=== PATIENT | male | born 1970 | race Caucasian/White ===

== ENCOUNTER 2022-03-16 23:28 | Emergency (ER) | payer OTHER ==
[2022-03-17] MEDS ORDERED: Acetaminophen/HYDROcodone 325-5 MG Tab PO ONE (00:23)
[2022-03-17] MEDS ORDERED: Ketorolac 30 MG/ML SDV IVPUSH ONE (01:46)
[2022-03-17 02:31] LABS: CARBON DIOXIDE,CO2 29.2 mmol/L (21.0-32.0); POTASSIUM,K 4.2 mmol/L (3.5-5.1)
[2022-03-17] MEDS ORDERED: Iopamidol 755 MG/ML 500 ML Multipack Bottle IVPUSH STA (03:09)
[2022-03-17] MEDS ORDERED: Morphine 4 MG/ML VIAL ONE (06:50)
[2022-03-17] MEDS ORDERED: Morphine 4 MG/ML VIAL IM ONE (07:03)
[2022-03-17] MEDS ORDERED: Morphine 4 MG/ML VIAL IVPUSH ONE (07:31)
[2022-03-17] MEDS ORDERED: Gadobenate Dimeglumine 529 MG/ML 20 ML SDV IVPUSH STA (07:43)
[2022-03-17] MEDS ORDERED: Nicotine 21 MG/24 Hr Patch TRDERM ONE (08:11)
== END 2022-03-17 09:59 | disposition home or self-care (01) ==
LOC: MW.ED 23:28
DX: M54.2 Cervicalgia (principal); Z20.822 Contact with and (suspected) exposure to COVID-19
CPT/HCPCS: 36415; 51798; 70450; 72125; 72126; 72156; 80053; 81001; 85025; 85652; 86140; 87635; 96374; 96375; 99285; A9270; A9577; J1885; J2270; Q9967; 99291; U0002